=== PATIENT | female | born 1990 | race American Indian/Alaskan Native ===

== ENCOUNTER 2021-07-31 18:14 | Emergency (ER) | payer SELFPAY ==
[2021-07-31 18:23] VITALS: BP 195/112
[2021-07-31] MEDS ORDERED: ASPIRIN 325 MG TAB PO ONE (19:58)
--- NOTE | 2021-07-31 20:01 | Event Note ---
ED Screening Note Date of service: 07/31/21 Time: 19:59 ED Screening Note: Patient is a 31-year-old -[place] female with a history of morbid obesity who presents to the ED with complaint of acute onset persistent irregular heartbeat, tachycardia, left-sided chest pain that radiates to the left arm and left lateral neck intermittently for the last 3 weeks, worse in the last 8 hours. Patient states that today the symptoms became persistent, intermittent and she developed shortness of breath. Patient denies dizziness, syncope, abdominal pain, nausea and vomiting, headache, change in vision, fever, chills, cough, traumatic injury, heavy lifting or back pain. Patient states that she is not on control. This initial assessment/diagnostic orders/clinical plan/treatment(s) is/are subject to change based on patients health status, clinical progression and re- assessment by fellow clinical providers in the ED. Further treatment and workup at subsequent clinical providers discretion. Patient/guardian urged not to elope from the ED as their condition may be serious if not clinically assessed and managed. Initial orders include: CBC, CMP, troponin, EKG, chest x-ray
[2021-07-31 20:21] LABS: Basophils % (Auto) 0.5 % (0.0-1.8); Eosinophils # (Auto) 0.1 K/mm3 (0.0-0.4); Eosinophils % (Auto) 1.3 % (0.0-4.3); Hematocrit 41.9 % (30.3-42.9); Hemoglobin 13.8 gm/dl (10.1-14.3); Lymphocytes # (Auto) 3.2 K/mm3 (1.2-5.4); Lymphocytes % (Auto) 41.6 % (13.4-35.0); Mean Corpuscular HGB Conc 33 % (30-34); Mean Corpuscular Volume 87 fl (79-97); Monocytes # (Auto) 0.5 K/mm3 (0.0-0.8); Monocytes % (Auto) 6.7 % (0.0-7.3); Platelet Count 189 K/mm3 (140-440)
--- NOTE | 2021-07-31 20:39 | XRay Report ---
CHEST 2 VIEWS INDICATION / CLINICAL INFORMATION: Chest pain, irregular heart beat. COMPARISON: None available. FINDINGS: SUPPORT DEVICES: None. HEART / MEDIASTINUM: No significant abnormality. LUNGS / PLEURA: No significant pulmonary abnormality. No significant pleural effusion. No pneumothora x. ADDITIONAL FINDINGS: No significant additional findings. IMPRESSION: 1. No acute abnormality of the chest. Signer Name: Addy Meyer MD Signed: 07/31/2021 8:34 PM Workstation Name: [id number]
[2021-07-31 20:45] LABS: Alanine Aminotransferase 23 units/L (7-56); Albumin 4.2 g/dL (3.9-5); BUN/Creatinine Ratio 10; Blood Urea Nitrogen 8 mg/dL (7-17); Hemolysis Index 3
--- NOTE | 2021-07-31 21:22 | Emergency Department Report ---
ED Palpitations HPI - General Chief Complaint: Arrhythmia/Palpitations Stated Complaint: CHEST PAIN, RACING HEART BEAT Time Seen by Provider: 07/31/21 20:44 Source: patient Mode of arrival: Ambulatory Limitations: No Limitations - History of Present Illness Initial Comments: Chief complaint: My heart is beating fast. HPI: This is a 31-year-old female BMI 56 who presents with fast heartbeat for the past several weeks. On the way to school in [place], she had rapid heartbeat. She pulled over. She called 911. Vital signs were taken. EM S evaluated her with EKG. EMS told her that she had an anxiety attack. No previous history of anxiety. She has had intermittent episodes of rapid heartbeat. Also had episode of left squeezing pressure in her arm radiating to the chest which lasted briefly. This occurred several weeks ago. She denies leg pain, chest pain, shortness of breath, fainting, dizziness. She currently symptom-free. In high school patient weighs 190 pounds. Her current weight is 340 pounds. She works part-time jobs and works to support herself through school. 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 She does not take oral contraceptives. MD Complaint: rapid heart beat, "heart racing", palpitations -: Gradual, week(s) (3 weeks ago) Context: occured during rest, other (While driving) Associated Symptoms: other (Left arm chest pressure) - Related Data Allergies Allergy/AdvReac Type Severity Reaction Status Date / Time No Known Allergies Allergy Unverified 07/31/21 18:20 ED Review of Systems ROS: Stated complaint: CHEST PAIN, RACING HEART BEAT Other details as noted in HPI Comment: All other systems reviewed and negative Constitutional: denies: chills, fever Respiratory: denies: cough, shortness of breath Cardiovascular: chest pain, palpitations Gastrointestinal: denies: abdominal pain, nausea, vomiting Neurological: denies: headache ED Past Medical Hx - Past Medical History Previous Medical History?: No - Surgical History Past Surgical History?: No - Family History Family history: hypertension - Social History Smoking Status: Never Smoker Substance Use Type: None ED Physical Exam - General Limitations: No Limitations General appearance: alert, in no apparent distress - Head Head exam: Present: atraumatic, normocephalic - Eye Eye exam: Present: normal appearance - ENT ENT exam: Present: mucous membranes moist - Neck Neck exam: Present: normal inspection, full ROM - Respiratory Respiratory exam: Present: normal lung sounds bilaterally. Absent: respiratory distress, wheezes, rales, rhonchi - Cardiovascular Cardiovascular Exam: Present: regular rate, normal rhythm, normal heart sounds. Absent: systolic murmur, diastolic murmur, rubs, gallop - GI/Abdominal GI/Abdominal exam: Present: soft, normal bowel sounds. Absent: distended, tenderness, guarding, rebound - Extremities Exam Extremities exam: Present: normal inspection - Neurological Exam Neurological exam: Present: alert, oriented X3 - Psychiatric Psychiatric exam: Present: normal affect, normal mood - Skin Skin exam: Present: warm, dry, intact, normal color. Absent: rash ED Course Vital Signs 07/31/21 18:20 Temperature 98.3 F Pulse Rate 88 Respiratory 18 Rate Blood Pressure 195/112 O2 Sat by Pulse 97 Oximetry ED Medical Decision Making - Lab Data Result diagrams: 07/31/21 20:10 07/31/21 20:10 Laboratory Results - last 24 hr 07/31/21 07/31/21 20:10 20:10 WBC 7.7 RBC 4.80 Hgb 13.8 Hct 41.9 MCV 87 MCH 29 MCHC 33 RDW 16.0 H Plt Count 189 Lymph % (Auto) 41.6 H Kane % (Auto) 6.7 Eos % (Auto) 1.3 Baso % (Auto) 0.5 Lymph # (Auto) 3.2 Kane # (Auto) 0.5 Eos # (Auto) 0.1 Baso # (Auto) 0.0 Seg Neutrophils % 49.9 Seg Neutrophils # 3.8 Sodium 137 Potassium 3.9 Chloride 102.1 Carbon Dioxide 28 Anion Gap 11 BUN 8 Creatinine 0.8 Estimated GFR > 60 BUN/Creatinine Ratio 10 Glucose 97 Calcium 9.0 Total Bilirubin 0.30 AST 27 ALT 23 Alkaline Phosphatase 79 Troponin T < 0.010 Total Protein 7.9 Albumin 4.2 Albumin/Globulin Ratio 1.1 - EKG Data EKG shows normal: sinus rhythm, axis Rate: normal - EKG Data Interpretation: nonspecific ST-T wave brennen 07/31/21 21:23 EKG obtained 1825 EKG interpreted by ar Rate 75 bpm normal axis normal intervals no ST elevation nonspecific T wave pattern - Radiology Data Radiology results: report reviewed Patient Name: EVELYN MCPHERSON Gender: Female Date of : 1990 Referring Provider: CARMEN CHUNG Organization: [facility] Accession Number: [id number] Requested Date: July 31, 2021 19:58 Report Status: Final Requested Procedure: 1 Procedure Description: XR chest routine 2V Modality: XR Findings Reporting MD: Addy Meyer Dictation Time: July 31, 2021 19:34 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 COMPARISON: None available. FINDINGS: SUPPORT DEVICES: None. HEART / MEDIASTINUM: No significant abnormality. LUNGS / PLEURA: No significant pulmonary abnormality. No significant pleural effusion. No pneumothorax. ADDITIONAL FINDINGS: No significant additional findings. IMPRESSION: 1. No acute abnormality of the chest. Signer Name: Addy Meyer MD Signed: 07/31/2021 7:34 PM Workstation Name: [id number] - Medical Decision Making Palpitations with intermittent chest arm pain: PERC negative for PE. CBC chemistry troponin within normal limits. Chest radiograph unremarkable EKG heart rate 75 bpm. Differential diagnosis includes hypothyroidism, anxiety reaction, PVCs, mitral valve prolapse. Strongly recommended evaluation by primary care physician. She referred to internal medicine physician. She is a full-time University student. She has access to evaluation by [place] physician. She will require blood pressure management. No evidence of endorgan damage. Patient received extensive alka tebral education. Strongly recommended weight reduction by increased physical activity. Critical care attestation.: If time is entered above; I have spent that time in minutes in the direct care of this critically ill patient, excluding procedure time. ED Disposition Clinical Impression: Elevated blood pressure reading, Palpitations Disposition: HOME / SELF CARE / HOMELESS Is pt being admited?: No Does the pt Need Aspirin: No Condition: Stable Instructions: Hypertension, Adult, [id number], Palpitations, [id number] Referrals: WILIAN KAMINSKI MD [Staff Physician] - 3-5 Days Heart Score - HEART Score History: Slightly suspicious EKG: Non-specific Age: < 45 Risk factors: No known risk factors Troponin: < normal limit HEART Score: 1 - EKG Read Time Time EKG Completed: 18:28 EKG Read Time: 18:30 - Critical Actions Critical Actions: 0-3 pts:0.9-1.7%risk of adverse cardiac event.Candidate for discharge
--- NOTE | 2021-08-01 14:26 | Electrocardiograph Report ---
[facility] Test Date: 2021-07-31 Test Time: 18:25:40 Pat Name: EVELYN MCPHERSON Department: Room: Gender: F Cra: ZAIRE : 1990 Requested By: MARIELA MCCLURE Order Number: [id number] Reading MD: Kenton Talavera Measurements Intervals [place] Rate: 74 P: 43 OK: 163 QRS: 91 QRSD: 101 T: 75 QT: 394 QTc: 436 Interpretive Statements Sinus rhythm Normal ECG No previous ECG available for comparison Electronically Signed On 08-01-2021 14:26:23 EDT by Kenton Talavera
== END 2021-07-31 21:33 | disposition home or self-care (01) ==
LOC: ED 18:14
DX: R03.0 Elevated blood-pressure reading, without diagnosis of hypertension (principal); R00.2 Palpitations; Z79.899 Other long term (current) drug therapy
CPT/HCPCS: 36415; 71046; 80053; 84484; 85025; 93005